=== PATIENT | female | born 1990 | race Asian ===

== ENCOUNTER 2016-08-29 08:59 | Emergency (ER) | payer MEDICAID ==
[~2016-08-29] VITALS: Ht 160 cm; Wt 67.5 kg
[2016-08-29 09:01] VITALS: Ht 160 cm; Wt 67.5 kg
[2016-08-29] MEDS ORDERED: CEPH-443 PO (09:13)
--- NOTE | 2016-08-29 09:23 | ERA ---
ER Documentation Chief Complaint Date/Time DATE: 08/29/16 TIME: 09:19 Chief Complaint LAC RIGHT MIDDLE FINGER HPI Patient is a 26-year-old female presents with a laceration to the right dorsal, distal phalanx of the fourth digit. Patient's when occurred 30 minutes ago. Patient was slicing a cucumber with a kimberly and the feeler slipped and hit her right finger. The patient is currently unemployed and is right-handed. Pt denies weight loss, fevers, nausea, vomiting, diarrhea, constipation, hyperhidrosis, rigors, fatigue, dyspnea, malaise or depression. Patient denies any discharge or swelling or pressure in the finger. ROS All systems reviewed and are negative except as per history of present illness. Medications Home Meds Active Scripts Cephalexin* (Keflex*) 500 Mg Capsule, 500 MG PO QID for 5 Days, CAP Prov:JATINDER DEE PA-C 08/29/16 PMhx/Soc Medical and Surgical Hx: pt denies Medical Hx, pt denies Surgical Hx Hx Alcohol Use: No Hx Substance Use: No Hx Tobacco Use: No Physical Exam Vitals Vital Signs Date Time Temp Pulse Resp B/P Pulse Ox O2 Delivery O2 Flow Rate FiO2 08/29/16 09:01 98.6 76 18 125/73 98 Physical Exam Const: Well-appearing 26-year-old female presenting with her sister. Head: Atraumatic Eyes: Normal Conjunctiva ENT: Normal External Ears, Nose and Mouth. Neck: Full range of motion..~ No meningismus. Resp: Clear to auscultation bilaterally Cardio: Regular rate and rhythm, no murmurs Abd: Soft, non tender, non distended. Normal bowel sounds Skin: Laceration 1 cm superficial to the right fourth digit dorsal side entering finger nail bed 5.5 cm not crossing midline of the fingernail bed. Back: No midline or flank tenderness Ext: No cyanosis, or edema Neur: Awake and alert Psych: Normal Mood and Affect Procedures/MDM Patient is 26-year-old female presented with a rash to the dorsal side of the right distal phalanx. The laceration is superficial and not bleeding. The patient arrived with antibiotic ointment already applied. Patient has no need for a lacerations of the wound will heal by secondary intention. Will discharge the patient with dressing, wound care instructions and antibiotics for infection prophylaxis. Departure Diagnosis: Primary Impression: Laceration of finger of right hand Qualified Code: S61.219A - Laceration of finger of right hand, initial encounter Condition: Stable Patient Instructions: Wound Care Additional Instructions: You were seen in the emergency department for your laceration which will heal by secondary intention. Your wound has been covered with antibiotic ointment. Please keep this dressing on for 12 hours. After 12 hours take the dressing down and gently clean the wound with ONLY soap and water. If you were given antibiotics, complete the course of treatment as prescribed. Look for signs of infection such as increasing redness, swelling, pain or drainage of pus (yellow/ green fluid). If you see signs of infection, please return to the emergency department immediately. If there are no signs of infection, cover your wound with antibiotic ointment and reapply a dressing. You will form a scar. To keep from scarring too dark, keep your wound covered and out of the sun for the next 6-12 months. JATINDER DEE PA-C Aug 29, 2016 09:23
== END 2016-08-29 09:32 | disposition home or self-care (01) ==
LOC: FTE 08:59
DX: S61.216A Laceration without foreign body of right little finger without damage to nail, initial encounter (principal); W22.8XXA Striking against or struck by other objects, initial encounter; Y92.9 Unspecified place or not applicable
CPT/HCPCS: 99283